=== PATIENT | female | born 1990 | race Caucasian/White ===

== ENCOUNTER 2021-07-22 23:33 | Observation (INO) | payer OTHER ==
--- NOTE | 2021-07-23 00:18 | ED ---
Recheck HPI - General Chief Complaint: Abdominal Pain Stated Complaint: Fever Time Seen by Provider: 07/22/21 23:35 Source: patient, RN notes reviewed, old records reviewed Mode of arrival: EMS Limitations: no limitations - History of Present Illness Initial Comments: This is a 31-year-old female to ER today for evaluation of persistent fevers. Significant right flank pain and she states she did pass a kidney stone the last 2 days. Patient coming in with history of kidney stones as a transfer patient for pyelonephritis may be septic kidney stone. Patient has no other significant complaints. Patient complains of persistent fevers and back pain. No cough congestion shortness of breath or chest pain. No recent travel history or sick contacts. No nausea vomiting or diarrhea currently MD Complaint: needs IV antibiotics, other (Septic kidney stone first pyelonephritis) -: days(s) Returns Today for: needs IV antibiotics, persistent/worsening pain related to initial visit Symptoms Since Prior Visit: worsening pain, fever Context: called for abnormal lab result Associated Symptoms: fever, chills, abdominal pain Treatments Prior to Arrival: Given Antibiotics on, Given Pain Meds on - Related Data Home Medications Medication Instructions Recorded Confirmed Apri 0.15-30 Mg-Mcg 1 tab PO DAILY 07/23/21 07/23/21 Butalb/Acetaminophen/Caffeine 1 tab PO DAILY PRN 07/23/21 07/23/21 [Esgic 50-325-40 mg Tablet] Cetirizine HCl 10 mg PO DAILY PRN 07/23/21 07/23/21 Pantoprazole Sodium 40 mg PO DAILY 07/23/21 07/23/21 Pramipexole [Mirapex] 1 mg PO HS PRN 07/23/21 07/23/21 Vortioxetine Hydrobromide 20 mg PO DAILY 07/23/21 07/23/21 [Trintellix] Allergies Allergy/AdvReac Type Severity Reaction Status Date / Time Penicillins Allergy Rash/Hives Verified 07/23/21 08:41 sulfamethoxazole Allergy Rash/Hives Verified 07/23/21 08:41 [From Bactrim] trimethoprim [From Bactrim] Allergy Rash/Hives Verified 07/23/21 08:41 Review of Systems ROS Statement: Those systems with pertinent positive or pertinent negative responses have been documented in the HPI. ROS Other: All systems not noted in ROS Statement are negative. Past Medical History Additional Past Medical History / Comment(s): migraine History of Any Multi-Drug Resistant Organisms: None Reported Additional Past Surgical History / Comment(s): right foot Past Psychological History: No Psychological Hx Reported, Anxiety, Depression Smoking Status: Current every day smoker Past Alcohol Use History: Occasional Past Drug Use History: Marijuana - Past Family History Family Family Medical History: No Reported History General Exam Limitations: no limitations General appearance: alert, in no apparent distress Head exam: Present: atraumatic, normocephalic, normal inspection Eye exam: Present: normal appearance, PERRL, EOMI. Absent: scleral icterus, conjunctival injection, periorbital swelling ENT exam: Present: normal exam, mucous membranes moist Neck exam: Present: normal inspection. Absent: tenderness, meningismus, lymphadenopathy Respiratory exam: Present: normal lung sounds bilaterally. Absent: respiratory distress, wheezes, rales, rhonchi, stridor Cardiovascular Exam: Present: regular rate, normal rhythm, normal heart sounds. Absent: systolic murmur, diastolic murmur, rubs, gallop, clicks GI/Abdominal exam: Present: soft, normal bowel sounds. Absent: distended, tenderness, guarding, rebound, rigid Extremities exam: Present: normal inspection, full ROM, normal capillary refill. Absent: tenderness, pedal edema, joint swelling, calf tenderness Back exam: Present: normal inspection Neurological exam: Present: alert, oriented X3, CN II-XII intact Psychiatric exam: Present: normal affect, normal mood Skin exam: Present: warm, dry, intact, normal color. Absent: rash Course Vital Signs 07/23/21 07/23/21 07/23/21 00:09 04:54 07:40 Temperature 99.1 F 102.2 F H Pulse Rate 72 78 81 Respiratory 18 18 18 Rate Blood Pressure 117/69 106/63 119/66 O2 Sat by Pulse 100 100 99 Oximetry 07/23/21 07/23/21 07/23/21 10: 15:06 16:54 Temperature 100.6 F H 102.7 F H 102.6 F H Pulse Rate 68 86 95 Respiratory 18 17 18 Rate Blood Pressure 122/53 114/94 123/67 O2 Sat by Pulse 98 99 98 Oximetry 07/23/21 07/23/21 18:43 23:00 Temperature 99.0 F 99.6 F Pulse Rate 91 Respiratory 17 Rate Blood Pressure O2 Sat by Pulse Oximetry - Reevaluation(s) Reevaluation #1: Medical record is reviewed Patient symptoms are improved here in the emergency department Patient informed of results and questions answered Patient is in no acute distress Reevaluation #2: Patient is informed of positive coronavirus test - Consultations Consultation #1: Spoke with urology who will see the patient as well as sound who will admit the patient Medical Decision Making - Medical Decision Making 31 female to the emergency department for evaluation, patient presents with polynephritis versus septic kidney stone. Patient also found to be coronavirus positive persistent fevers and pain. Patient will be admitted for IV antibiotics and pain control - Lab Data Result diagrams: 07/23/21 10:22 07/23/21 10:22 Disposition Clinical Impression: Abdominal pain, Acute pyelonephritis, Fever Narrative: ?kidney stone? Disposition: ADMITTED IP TO THIS [facility] Condition: Serious Is patient prescribed a controlled substance at d/c from ED?: No
[2021-07-23] MEDS ORDERED: ONDANSETRON 4 MG/2 ML VIAL IVP PRN (00:44)
[2021-07-23] MEDS ORDERED: MORPHINE SULFATE 4 MG/ML SYRINGE IV PRN (00:44)
[2021-07-23] MEDS ORDERED: ACETAMINOPHEN TAB 500 MG TAB PO STA (00:44)
[2021-07-23] MEDS ORDERED: NALOXONE 0.4 MG/ML 1 ML VIAL IV PRN (00:44)
[2021-07-23] MEDS ORDERED: HYDROmorphone 1 MG/ML 1 ML SYRINGE IVP STA (00:44)
[2021-07-23] MEDS ORDERED: KETOROLAC 15 MG/ML 1 ML VIAL IVP STA (00:44)
[2021-07-23] MEDS: SODIUM CHLORIDE 0.9% 1,000 ML IV SCH ×3 (01:02→19:15)
[2021-07-23] MEDS ORDERED: BUTALB/APAP/CAFF 50-325-40MG TAB PO STA (03:07)
[2021-07-23] MEDS: HYDROmorphone 1 MG/ML 1 ML SYRINGE IVP PRN ×4 (04:55→23:56)
--- NOTE | 2021-07-23 05:16 | P.HPIM ---
History of Present Illness H&P Date: 07/23/21 Chief Complaint: Pyelonephritis kidney stones 31-year-old female with history of migraines Patient was transferred to our facility from [facility] for urology evaluation she was diagnosed over there with pyelonephritis and kidney stones Transfer papers were not available at this time for my review Patient reports few days history of abdominal pain radiating to the groin mainly right sided associated with dysuria feeling nauseous couple episodes of vomiting along with headaches she complains of migraine headaches. She also reports some coughing denies any shortness of breath body aches changes in smell or taste sensation. She reports severe diffuse headache she has history of migraines she takes Advil's most of the time even on empty stomach. She is also reporting some epigastric discomfort denies any hemoptysis or GI bleeding. She claims that over the weekend she was diagnosed with kidney stone and ovarian cyst. She was not improving for which she decided to go back to the hospital and they sent her here for urology evaluation. At our facility she was diagnosed with Covid she does admit to coughing and some difficulty breathing but denies any changes in smell or taste sensation denies any sore throat denies any diffuse body aches. Review of Systems Pertinent positives as noted in HPI. All other systems were reviewed and are negative Past Medical History Additional Past Medical History / Comment(s): migraine History of Any Multi-Drug Resistant Organisms: None Reported Additional Past Surgical History / Comment(s): right foot Past Psychological History: No Psychological Hx Reported, Anxiety, Depression Smoking Status: Current every day smoker Past Alcohol Use History: Occasional Past Drug Use History: Marijuana - Past Family History Family Family Medical History: No Reported History Medications and Allergies Home Medications Medication Instructions Recorded Confirmed Type Butalb/Asprin/Caff 50-325-40Mg 2 each PO Q4HR 02/15/14 02/15/14 History [Fiorinal] Allergies Allergy/AdvReac Type Severity Reaction Status Date / Time Penicillins Allergy Rash/Hives Verified 07/23/21 00:14 sulfamethoxazole Allergy Rash/Hives Verified 07/23/21 00:14 [From Bactrim] trimethoprim [From Bactrim] Allergy Rash/Hives Verified 07/23/21 00:14 Physical Exam Vitals: Vital Signs Temp Pulse Resp BP Pulse Ox 10/09/21 04:54 78 18 106/63 100 07/23/21 00:09 99.1 F 72 18 117/69 100 Intake and Output 07/22/21 07/22/21 07/23/21 14:59 22:59 06:59 Other: Weight 89.358 kg Constitutional: No acute distress, conversant, pleasant Eyes: Anicteric sclerae, moist conjunctiva, Pupils equal round reactive to light ENMT: NC/AT Oropharynx clear, no erythema, or exudates Neck: Supple, FROM, no masses, or JVD No carotid bruits No thyromegaly Lungs: Clear to auscultation Clear to percussion Normal respiratory effort, no accessory muscle use Cardiovascular: Heart regular in rate and rhythm, No murmurs, gallops, or rubs No peripheral edema Abdominal: Tenderness to deep palpation of epigastric region, tenderness to percussion of the right costovertebral angle Abdomen Soft no guarding, rebound or rigidity Abdomen moving with respiration Normoactive bowel sounds No hepatomegaly, No splenomegaly No palpable mass No abdominal wall hernia noted Skin: Normal temperature, tone, texture, turgor No induration No subcutaneous nodules No rash, lesions No ulcers Extremities: No digital cyanosis No clubbing Pedal pulses intact and symmetrical Radial pulses intact and symmetrical No calf tenderness Psychiatric: Alert and oriented to person, place and time Appropriate affect fair judgement Neuro Muscles Strength 5/5 in all 4 extremities Sensation to light touch grossly present throughout Cranial nerves II-XII grossly intact No focal sensory deficits Lymphatics: no palpable cervical or supraclavicular , or inguinal lymph nodes Results Labs: Abnormal Lab Results - Last 24 Hours (Table) 07/23/21 Range/Units 01:06 Coronavirus (PCR) Detected A (Not Detectd) Assessment and Plan Assessment: acute pyelonephritis kidney stone follow up cultures Rocephine daily follow up urology recommendation s IVF hydration with normal saline pain control with opioids migraine headaches pain control PPI COVID positive no hypoxemia continue to monitor DVT PPX mechanical full code anticipated length of stay < 2 midnights anticipated discharge home
--- NOTE | 2021-07-23 07:50 | P.GSCN ---
History of Present Illness Consult date: 07/23/21 History of present illness: 31-year-old female transferred from [facility] because of a possible kidney stone, pyelonephritis and back pain. The patient states that she's had stones this past year. She has not had that surgery for them. She states she is passed some but does not know the type of them. She states that she's collective stone. She wonders whether she may have passed a stone last 48 hours. She is still having pain on the right side. A CAT scan was done in [place] showing probably a focal pyelonephritis in the right kidney. There are no obvious stones and there is no hydronephrosis. The patient is also covid 19 Positive. The urine looks infected. The patient has had fever in the last 48 hours. Review of Systems All systems: negative - Constitutional Denies fever, Denies weight loss - EENT Eyes: denies blurred vision Ears, nose, mouth and throat: Denies dysphagia - Cardiovascular Denies chest pain, Denies shortness of breath - Respiratory Denies cough, Denies 7 - Gastrointestinal Reports as per HPI - Genitourinary Genitourinary: Denies dysuria, Denies hematuria - Integumentary Denies rash, Denies unusual bruising - Neurological Denies headaches, Denies syncope - Hematologic/Lymphatic Denies easy bleeding, Denies easy bruising Past Medical History Additional Past Medical History / Comment(s): migraine History of Any Multi-Drug Resistant Organisms: None Reported Additional Past Surgical History / Comment(s): right foot Past Psychological History: No Psychological Hx Reported, Anxiety, Depression Smoking Status: Current every day smoker Past Alcohol Use History: Occasional Past Drug Use History: Marijuana - Past Family History Family Family Medical History: No Reported History Medications and Allergies Home Medications Medication Instructions Recorded Confirmed Type Butalb/Asprin/Caff 50-325-40Mg 2 each PO Q4HR 02/15/14 02/15/14 History [Fiorinal] Allergies Allergy/AdvReac Type Severity Reaction Status Date / Time Penicillins Allergy Rash/Hives Verified 07/23/21 00:14 sulfamethoxazole Allergy Rash/Hives Verified 07/23/21 00:14 [From Bactrim] trimethoprim [From Bactrim] Allergy Rash/Hives Verified 07/23/21 00:14 Surgical - Exam Vital Signs Temp Pulse Resp BP Pulse Ox 99.1 F 72 18 117/69 100 07/23/21 00:09 07/23/21 00:09 07/23/21 00:09 07/23/21 00:09 07/23/21 00:09 - General well developed, well nourished, moderate distress - Eyes PERRL, normal ocular movement - ENT no hearing loss - Neck trachea midline - Respiratory normal expansion, normal respiratory effort - Cardiovascular Rhythm: regular - Abdomen Abdomen: soft, tender - Neurologic normal coordination, normal sensation - Musculoskeletal normal posture - Psychiatric oriented to time, oriented to person, oriented to place, speech is normal, memory intact Results - Labs Abnormal Lab Results - Last 24 Hours (Table) 07/23/21 Range/Units 01:06 Coronavirus (PCR) Detected A (Not Detectd) - Imaging CT scan - abdomen: report reviewed, image reviewed CT scan - pelvis: report reviewed, image reviewed Assessment and Plan Assessment: Impression: Right pyelonephritis. Possible recent stone passage. COVID-19 positive. Recommendations: This point in time there is nothing urologic that needs to be done. Her back pain is due to the pyelonephritis. There is question whether there is an abscess but this looks more like a focal lobar nephronia in the right kidney. This should be treated with antibiotics. Time with Patient: Greater than 30
[2021-07-23] MEDS: IBUPROFEN 600 MG TAB PO PRN ×3 (07:51→23:54)
[2021-07-23] MEDS: PANTOPRAZOLE 40 MG TABLET PO SCH ×2 (07:55→20:35)
[2021-07-23 10:40] LABS: Basophils # (A) 0.1 k/uL (0-0.2); Basophils % (A) 1 %; Eosinophils % (A) 0 %; HCT 38.7 % (34.0-46.0); HGB 12.3 gm/dL (11.4-16.0); Lymphocytes # (A) 1.5 k/uL (1.0-4.8); Lymphocytes % (A) 12 %; MCHC 31.8 g/dL (31.0-37.0); MCV 97.3 fL (80.0-100.0); Mean Platelet Volume 9.7; Monocytes # (A) 0.9 k/uL (0-1.0); Monocytes % (A) 7 %; Neutrophils # (A) 10.1 k/uL (1.3-7.7); Neutrophils % (A) 79 %; Platelet Count 216 k/uL (150-450); RBC 3.98 m/uL (3.80-5.40); RDW 13.3 % (11.5-15.5); WBC 12.9 k/uL (3.8-10.6)
[2021-07-23 10:51] LABS: African American GFR (CKD) >90 (>60 ml/min/1.73 sqM); Anion Gap 6 mmol/L; Blood Urea Nitrogen 4 mg/dL (7-17); Calcium 8.5 mg/dL (8.4-10.2); Carbon Dioxide 20 mmol/L (22-30); Chloride 104 mmol/L (98-107); Glucose 95 mg/dL (74-99); Non-African American GFR(CKD) >90 (>60 ml/min/1.73 sqM); Potassium 3.8 mmol/L (3.5-5.1); Sodium 130 mmol/L (137-145)
[2021-07-23] MEDS: ACETAMINOPHEN TAB 325 MG TAB PO PRN (16:57)
[2021-07-23] MEDS: MORPHINE SULFATE 2 MG/ML SYRINGE IV PRN ×3 (16:58→22:56)
[2021-07-24 00:08] VITALS: RESP 18
[2021-07-24] MEDS: HYDROmorphone 1 MG/ML 1 ML SYRINGE IVP PRN (05:59)
[2021-07-24 07:31] LABS: African American GFR (CKD) >90 (>60 ml/min/1.73 sqM); Anion Gap 6 mmol/L; Blood Urea Nitrogen 6 mg/dL (7-17); Carbon Dioxide 26 mmol/L (22-30); Chloride 105 mmol/L (98-107); Glucose 89 mg/dL (74-99); Non-African American GFR(CKD) >90 (>60 ml/min/1.73 sqM); Potassium 4.2 mmol/L (3.5-5.1); Sodium 137 mmol/L (137-145)
[2021-07-24] MEDS: ACETAMINOPHEN TAB 325 MG TAB PO PRN (09:06)
[2021-07-24] MEDS: PANTOPRAZOLE 40 MG TABLET PO SCH (09:07)
[2021-07-24 09:31] LABS: Basophils # (A) 0.07 X 10*3/uL (0.00-0.10); Basophils % (A) 0.5 %; Eosinophils # (A) 0.06 X 10*3/uL (0.04-0.35); Eosinophils % (A) 0.5 %; HCT 38.8 % (37.2-46.3); HGB 12.3 g/dL (12.0-15.0); Lymphocytes # (A) 2.17 X 10*3/uL (0.90-5.00); Lymphocytes % (A) 16.7 %; MCH 30.1 pg (27.0-32.0); MCHC 31.7 g/dL (32.0-37.0); MCV 95.1 fL (80.0-97.0); Mean Platelet Volume 12.7 fL (9.5-12.2); Monocytes # (A) 1.23 X 10*3/uL (0.20-1.00); Monocytes % (A) 9.4 %; Neutrophils # (A) 9.43 X 10*3/uL (1.80-7.70); Neutrophils % (A) 72.4 %; Platelet Count 247 X 10*3/uL (140-440); RBC 4.08 X 10*6/uL (4.10-5.20); WBC 13.02 X 10*3/uL (4.50-10.00)
[2021-07-24] MEDS ORDERED: KETOROLAC 15 MG/ML 1 ML VIAL IVP STA (09:50)
[2021-07-24] MEDS ORDERED: SODIUM CHLORIDE 0.9% 1,000 ML IV SCH (13:30)
--- NOTE | 2021-07-24 13:38 | P.DS ---
Providers Date of admission: 07/23/21 00:44 Expected date of discharge: 07/24/21 Attending physician: Evan Stubbs MD Consults: 07/23/21 00:45 Consult Physician Routine Consulting Provider: Lonny Hester Consult Reason/Comments: pain Do you want consulting provider notified?: Yes Primary care physician: Dean [facility] Course: This is a 31-year-old female who presented to an outside hospital with worsening back pain and was diagnosed with acute right pyelonephritis and a possible kidney stone. Patient was transferred to our hospital for urology evaluation. Computed tomography scan from outside hospital was reviewed by urology and no stone was noticed. Noted acute pyelonephritis in the right kidney. Urinalysis or urine culture are not available for me to review. Urine culture remained negative to date. Patient will be given antibiotic prescription with Levaquin 500 mg daily for 7 days. She will follow-up with her PCP to obtain urine culture results from outside hospital. Patient was also noted to be COVID-19 positive here in the ER. She is having minimal upper respiratory symptoms. She was advised to hydrate well at home and take Tylenol as needed. Also take vitamin C, vitamin D, and zinc. Patient will be discharged home in a stable condition. Patient Condition at Discharge: Serious Plan - Discharge Summary New Discharge Prescriptions: New Levofloxacin [Levaquin] 500 mg PO DAILY 7 Days #7 tab Continue Pramipexole [Mirapex] 1 mg PO HS PRN PRN Reason: RESTLESS LEGS Pantoprazole Sodium 40 mg PO DAILY Butalb/Acetaminophen/Caffeine [Esgic 50-325-40 mg Tablet] 1 tab PO DAILY PRN PRN Reason: Migraine Headache Apri 0.15-30 Mg-Mcg 1 tab PO DAILY Vortioxetine Hydrobromide [Trintellix] 20 mg PO DAILY Cetirizine HCl 10 mg PO DAILY PRN PRN Reason: Allergy Symptoms Discharge Medication List Apri 0.15-30 Mg-Mcg 1 tab PO DAILY 07/23/21 [History] Butalb/Acetaminophen/Caffeine [Esgic 50-325-40 mg Tablet] 1 tab PO DAILY PRN 07/23/21 [History] Cetirizine HCl 10 mg PO DAILY PRN 07/23/21 [History] Pantoprazole Sodium 40 mg PO DAILY 07/23/21 [History] Pramipexole [Mirapex] 1 mg PO HS PRN 07/23/21 [History] Vortioxetine Hydrobromide [Trintellix] 20 mg PO DAILY 07/23/21 [History] Levofloxacin [Levaquin] 500 mg PO DAILY 7 Days #7 tab 07/24/21 [Rx] Follow up Appointment(s)/Referral(s): Dean Lara DO [Primary Care Provider] - 1-2 days Discharge Disposition: HOME SELF-CARE
[2021-07-24 14:32] VITALS: BP 135/67; PULSE 89; TEMP 99.7
== END 2021-07-24 14:59 | disposition home or self-care (01) ==
LOC: EC 23:33 → INTOOBSV 07-23 00:44 → 5NMEDONC 07-23 00:44 → 4SSUR 07-23 02:34 → UNDODISIN 07-24 14:59
PROVIDERS: ADMIT Internal Medicine; ATTEND Internal Medicine
DX: N10 Acute pyelonephritis (principal); N20.0 Calculus of kidney; U07.1 COVID-19; G43.909 Migraine, unspecified, not intractable, without status migrainosus; G25.81 Restless legs syndrome; F17.200 Nicotine dependence, unspecified, uncomplicated; F32.9 Major depressive disorder, single episode, unspecified; F41.9 Anxiety disorder, unspecified; Z88.2 Allergy status to sulfonamides; Z88.0 Allergy status to penicillin; Z87.442 Personal history of urinary calculi
CPT/HCPCS: 99285; 96376 ×2; 96361; 96365; 96366; 96375; 80048 ×2; 83605; 85025 ×2; 87040; 87635; G0378 ×2; J2270 ×2; J2405; J0696 ×2; J1170 ×2; J1885 ×2